=== PATIENT | female | born 1970 | race Caucasian/White ===

== ENCOUNTER 2017-08-05 11:57 | Day surgery (SDC) | payer OTHER ==
[2017-08-05] MEDS ORDERED: FENTAnyl 50 MCG/ML VIAL (14:40)
[2017-08-05] MEDS ORDERED: MIDAZOLAM 1 MG/ML 2 ML INJ ×4 (14:40)
== END 2017-08-05 15:30 | disposition home or self-care (01) ==
LOC: GIL 11:57
DX: K92.1 Melena (principal); K64.8 Other hemorrhoids
CPT/HCPCS: 45380; 84703; 88305